=== PATIENT | female | born 1985 | race Caucasian/White ===

== ENCOUNTER 2020-06-15 21:35 | Emergency (ER) | payer SELFPAY ==
[~2020-06-15] VITALS: Ht 172.7 cm; Wt 98.1 kg
--- NOTE | 2020-06-15 22:44 | PHYS DOC ---
General Adult EDM: Chief Complaint: ABDOMINAL PAIN HPI: HPI: Patient is a 34 year old female who presents with complaints of periumbilical abdominal pain since 2:00 on Wednesday morning. Patient reports that the pain woke her up from sleep and has been constant. It does seem to wax and wane. It does radiate up into the epigastrium at times. She describes it as a sharp and achy. Patient has had some associated vomiting described as dry heaves without nausea. She reports she did have a bowel movement today without melena, hematochezia or diarrhea. Patient is also had flatus. Patient reports she has had this umbilical hernia for years. Patient reports a decrease in urinary o utput but denies any dysuria or pyuria or hematuria. She also denies any back pain, chest pain or shortness of breath, she denied fever, chills but does complain of some sweats right before she vomits. Patient also stated no cough, sore throat, congestion runny nose headache, or exposure to COVID-19 Review of Systems: Review of Systems: Constitutional: Denies fever or chills. [] Eyes: Denies change in visual acuity. [] HENT: Denies nasal congestion or sore throat. [] Respiratory: Denies cough or shortness of breath. [] Cardiovascular: Denies chest pain or edema. [] GI: See HPI. [] : Denies dysuria. [] Musculoskeletal: Denies back pain or joint pain. [] Integument: Denies rash. [] Neurologic: Denies headache, focal weakness or sensory changes. [] Endocrine: Denies polyuria or polydipsia. [] Lymphatic: Denies swollen glands. [] Psychiatric: Denies depression or anxiety. [] Heart Score: Risk Factors: Risk Factors: DM, Current or recent (<one month) smoker, HTN, HLP, family history of CAD, obesity. Risk Scores: Score 0 - 3: 2.5% MACE over next 6 weeks - Discharge Home Score 4 - 6: 20.3% MACE over next 6 weeks - Admit for Clinical Observation Score 7 - 10: 72.7% MACE over next 6 weeks - Early Invasive Strategies Current Medications: Current Medications Medications (Trade) Dose Ordered Sig/Meg Start Time Stop Time Status Last Admin Dose Admin Hydromorphone HCl (Dilaudid) 1 mg 1X ONCE 06/15/20 22:45 06/15/20 22:46 UNV Ondansetron HCl (Zofran) 4 mg 1X ONCE 06/15/20 22:45 06/15/20 22:46 UNV Sodium Chloride 1,000 ml @ 1,000 mls/hr 1X ONCE 06/15/20 22:45 06/15/20 23:44 UNV Allergies: Allergies: Allergies Coded Allergies Type Severity Reaction Last Updated Verified No Known Drug Allergies 06/15/20 No Physical Exam: PE: Constitutional: Well developed, well nourished, no acute distress, non-toxic appearance. [] HENT: Normocephalic, atraumatic, bilateral external ears normal, oropharynx moist, no oral exudates, nose normal. [] Eyes: PERRLA, EOMI, conjunctiva normal, no discharge. [] Neck: Normal range of motion, no tenderness, supple, no stridor. [] Cardiovascular:Heart rate regular rhythm, no murmur [] Lungs & Thorax: Bilateral breath sounds clear to auscultation [] Abdomen: Normal bowel sounds, soft, tenderness in the periumbilical area but also diffusely. No guarding, no rebound, mild distention, a umbilical hernia was present, and palpation of the anterior abdominal wall through the extensive adipose tissue is a questionable area of mass. This was tender as well. [] Skin: Warm, dry, no erythema, no rash. [] Back: No tenderness, no CVA tenderness. [] Extremities: No tenderness, no cyanosis, no clubbing, ROM intact, no edema. [] Neurologic: Alert and oriented X 3, normal motor function, normal sensory function, no focal deficits noted. [] Psychologic: Affect normal, judgement normal, mood normal. [] EKG: EKG: [] Radiology/Procedures: Radiology/Procedures: [] Course & Med Decision Making: Course & Med Decision Making Pertinent Labs and Imaging studies reviewed. (See chart for details) [id number]-the patient was seen and reevaluated. I attempted to reduce her umbilical hernia after pain medication and some ice. This worked out perfectly. Was able to reduce the hernia without any difficulty using gentle pressure. The patient tolerated the procedure well and at this time is without any pain. I will cancel the CT scan. I discussed reasons to return, treatment plan and need for follow-up. [] Dragon Disclaimer: Dragon Disclaimer: This electronic medical record was generated, in whole or in part, using a voice recognition dictation system. Departure Departure Impression: Primary Impression: Periumbilical abdominal pain Additional Impression: Umbilical hernia without mention of obstruction or gangrene Disposition: HOME, SELF-CARE Condition: IMPROVED Referrals: OSKAR FRANCIS APRN (PCP) KARY FORTUNE MD Patient Instructions: Umbilical Hernia, Child Additional Instructions: Follow-up with general surgery at your convenience to discuss repair. Justicifation of Admission Dx: Justifications for Admission: Justification of Admission Dx: N/A XIN OTTO MD Jun 15, 2020 22:44
[2020-06-15] MEDS ORDERED: ONDANSETRON PF 4 MG/2 ML VIAL. IVP ONE (22:45)
[2020-06-15] MEDS ORDERED: IV NORMAL SALINE 1000ML BAG 1,000 ML IV ONE (22:45)
[2020-06-15] MEDS ORDERED: HYDROmorphone 2 MG/ML VIAL IV ONE (22:45)
[2020-06-15 23:32] LABS: BILIRUBIN,URINE MODERATE (NEG); CLARITY,URINE CLEAR; COLOR,URINE AMBER; NITRITE,URINE NEGATIVE (NEG); PROTEIN,URINE NEGATIVE (NEG-TRACE)
[2020-06-15 23:39] LABS: BACTERIA,URINE MODERATE /HPF (0-FEW); SQUAMOUS EPITHELIAL CELL,UR MANY /LPF
[2020-06-15 23:42] LABS: WBC,URINE RARE /HPF (0-4)
[2020-06-15 23:48] LABS: BASO % 0 % (0-3); EOS % 0 % (0-3); HEMOGLOBIN 14.3 g/dL (12.0-15.5); LYMPH # 0.7 x10^3/uL (1.0-4.8); LYMPH % 8 % (24-48); MEAN CORPUSCULAR HEMOGLOBIN 31 pg (25-35); MEAN CORPUSCULAR HGB CONC 34 g/dL (31-37); MEAN CORPUSCULAR VOLUME 91 fL (79-100); MONO # 0.4 x10^3/uL (0.0-1.1); MONO % 5 % (0-9); NEUT # 6.8 x10^3/uL (1.8-7.7); NEUT % 86 % (31-73); PLATELET COUNT 270 x10^3/uL (140-400); RED BLOOD COUNT 4.62 x10^6/uL (3.50-5.40); RED CELL DISTRIBUTION WIDTH 13.1 % (11.5-14.5); WHITE BLOOD COUNT 7.9 x10^3/uL (4.0-11.0)
[2020-06-15 23:59] LABS: CALCIUM 9.1 mg/dL (8.5-10.1); CREATININE 0.7 mg/dL (0.6-1.0); GFR 95.2; POTASSIUM 3.8 mmol/L (3.5-5.1)
[2020-06-16 00:06] LABS: ALBUMIN 3.5 g/dL (3.4-5.0); ALBUMIN/GLOBULIN RATIO 1.1 (1.0-1.7); TOTAL BILIRUBIN 2.4 mg/dL (0.2-1.0); TOTAL PROTEIN 6.8 g/dL (6.4-8.2)
[2020-06-16] MEDS ORDERED: IOHEXOL 300 MG/ML 100ML VIAL. IV ONE (00:45)
[2020-06-16] MEDS ORDERED: CONTRAST GIVEN. MC PRN (00:45)
[2020-06-16 00:46] LABS: U PREG PATIENT NEGATIVE (NEG)
[2020-06-16 00:57] LABS: % BANDS 2 % (0-9); % MONOS 5 % (0-10)
[2020-06-16 01:00] LABS: % LYMPHS 5 % (24-48); % SEGS 88 % (35-66); PLT ESTIMATE ADEQUATE (ADEQUATE)
[2020-06-16 02:10] VITALS: BP 118/63
== END 2020-06-16 02:15 | disposition home or self-care (01) ==
LOC: ER 21:35
DX: K42.9 Umbilical hernia without obstruction or gangrene (principal); R10.33 Periumbilical pain; R11.10 Vomiting, unspecified
CPT/HCPCS: 36415; 80053; 81001; 81025; 83690; 85007; 85025; 87086; 96361; 96374; 96375; 99285; J1170; J2405; J7030